=== PATIENT | male | born 1980 | race Caucasian/White ===

== ENCOUNTER 2020-07-30 17:28 | Emergency (ER) | payer OTHER, SELFPAY ==
--- NOTE | ~2020-07-30 | XR_ITS ---
EXAMINATION: XR finger 2nd RT min 2V, XR finger 3rd RT min 2V DATE: 07/30/2020 18:03 INDICATION: Avulsion injury to the right second and third digits. TECHNIQUE: 1. Dorsal palmar, lateral and 2 oblique views of the right second digit were obtained 2. Dorsal palmar, lateral and 2 oblique views of the right third digit were obtained COMPARISON: None FINDINGS: Prominent bandaging material surrounding the right second digit. There is been amputation of the soft tissue distal to the tuft of the distal phalanx. Bones in the right second digit remain normal with normal alignment and joint spaces and no fracture. There is additional bandaging material about the r ight third digit where there are old healed fracture deformities of the distal phalanx and head of th e proximal phalanx. The fractures have healed such that the distal phalanx is subluxed palmar with re spect to the middle phalanx and with abnormal contours to the articular surfaces at the distal interp halangeal joint. No acute fracture. The more proximal joint spaces as well as the remaining visualize d joint spaces of the right hand are normal. IMPRESSION: 1. Soft tissue amputation of the tip of the right second digit distal to the tuft of the phalanx. No acute osseous abnormality. The right second and third digits. 2. Chronic healed fracture deformities at the third distal phalanx and head of the third middle phala nx. Reviewed, dictated and finalized at location A. IMPRESSION: 1. Soft tissue amputation of the tip of the right second digit distal to the tu ft of the phalanx. No acute osseous abnormality. The right second and third dig its. 2. Chronic healed fracture deformities at the third distal phalanx and head of the third middle phalanx.
[2020-07-30 17:29] VITALS: BP 131/98; PULSE 78; RESP 19; TEMP 36.2; O2SAT 98
--- NOTE | 2020-07-30 17:36 | PC.NURSE ---
Pt's finger tip removed from the bag of ice that he brought it in and placed on normal saline guaze.
--- NOTE | 2020-07-30 17:49 | ED.GENADULT ---
HPI - General Adult General Chief complaint: Wound/Laceration Stated complaint: Laceration to hand Time Seen by Provider: 07/30/20 17:33 Source: patient Mode of arrival: ambulatory Limitations: no limitations History of Present Illness HPI narrative: Patient presents for evaluation of right index and middle finger injuries. He indicates he was using a mandolin just prior to arrival when he cut the tips of the second and third fingers off . Reports moderate amount of pain in the affected area, described as throbbing. No numerical rating to the pain. He is left-hand dominant. He is not diabetic. States his last tetanus shot was within the last five years. Related Data Home Medications Medication Instructions Recorded Confirmed sertraline mg DAILY 07/30/20 trazodone DAILY 07/30/20 Allergies Allergy/AdvReac Type Severity Reaction Status Date / Time No Known Allergies Allergy Mild Verified 07/30/20 17:32 Review of Systems Review of Systems: Narrative: CONSTITUTIONAL: Denies fever, chills, or sweats. EYES: Denies visual changes, redness, or discharge. ENT: Denies rhinorrhea, congestion, sore throat, or otalgia. CARDIOVASCULAR: Denies chest pain, palpitations, or edema. RESPIRATORY: Denies cough or dyspnea. GASTROINTESTINAL: Denies abdominal pain, nausea, vomiting, or diarrhea. GENITOURINARY: Denies dysuria or hematuria. SKIN: Reports wounds to the right index and middle fingers. Denies rash or itching. MUSCULOSKELETAL: Reports pain in the right index and middle fingers NEUROLOGIC: Denies headache, numbness, dizziness, or weakness. PSYCHIATRIC: Denies anxiety or depression. [facility] Past Medical History Medical History No pertinent past medical history Surgical History Surgical History (Updated 07/30/20 @ 19:25 by GISELE Tillman, GERTRUDE) No pertinent past surgical history Family History Family History (Updated 07/30/20 @ 19:25 by GISELE Tillman, GERTRUDE) Mother No pertinent past medical history Other Malignant neoplasm of prostate Social History Social History Alcohol intake: current Alcohol use details: socially Substance use: never Living arrangements: with family Gender identity (if verbalized by the patient): Male Sexual Orientation (if Verbalized by the Patient): Straight or Heterosexual Spiritual care concerns: No Exam Narrative: Exam Narrative: GENERAL: Well-appearing, well-nourished, and in no acute distress. HEAD: Normocephalic, atraumatic. EYES: PERRLA and EOMI. ENT: Nares clear, no rhinorrhea or epistaxis. Mucous membranes moist. Oropharynx without tonsillar hypertrophy exudate or other lesions. Bilateral TMs pearly caldera nonbulging NECK: Supple. No adenopathy or masses. No carotid bruits or JVD CHEST: Clear to auscultation. No respiratory distress. No wheezes rales or rhonchi HEART: Regular rate and rhythm. No murmur heard. Normal peripheral pulses. ABDOMEN: Soft, nontender, nondistended, normal active bowel sounds. EXTREMITIES: Normal range of motion. No edema. SKIN: There is avulsion injury to distal aspect of right index finger, which appears to only involve soft tissues with no apparent bone involvement. There is a moderate amount of sanguinous drainage noted. There is avulsion injury to distal aspect of right middle finger, which appears to only involve soft tissues with no apparent bone involvement. There is a moderate amount of sanguinous drainage noted NEURO: No focal deficits. Alert and oriented x3. PSYCH: Normal mood and affect. Course Course Emergency Course: This is a 40-year-old male who presented with injuries to the second and third digits of the right hand after using a mandolin. X-ray showed no bony involvement. He has no range of motion deficits. Wounds were thoroughly irrigated and Surgicel/Xeroform were applied. P
--- NOTE | 2020-07-30 17:49 | PC.NURSE ---
xray at bedside.
[2020-07-30] MEDS: HYDROcodone/acetaminophen (*CRX) 5-325 MG TABLET 2 TAB PO (18:03)
--- NOTE | 2020-07-30 18:18 | PC.NURSE ---
RN at bedside assisting [employer] with lac repair/wound care.
[2020-07-30] MEDS: LIDOCAINE HCL 1% LOCAL INJ 20 ML VIAL 10 ML INFILTRATE (18:21)
[2020-07-30] MEDS: CELLULOSE OXIDIZED 2 x 14 INCH 2 PKT XX (18:37)
--- NOTE | 2020-07-30 19:33 | PC.NURSE ---
pt has dressing in place on this RN's arrival. reports tetanus UTD within 5 yrs.
[2020-07-30 19:53] VITALS: BP 129/95; PULSE 75; RESP 12; TEMP 36.4; O2SAT 97
== END 2020-07-30 19:54 | disposition home or self-care (01) ==
PROVIDERS: Emergency Provider Nurse Practitioner; PCP Internal Medicine
DX: S61.200A Unspecified open wound of right index finger without damage to nail, initial encounter (principal); S61.202A Unspecified open wound of right middle finger without damage to nail, initial encounter; Z23 Encounter for immunization; W27.4XXA Contact with kitchen utensil, initial encounter
CPT/HCPCS: 73140; 90471; 99283; A4565; A9270